=== PATIENT | female | born 1990 | race Caucasian/White ===

== ENCOUNTER 2018-07-08 21:07 | Inpatient (IN) | payer BC ==
[2018-07-09] MEDS ORDERED: Lidocaine 1% (PF) 30 ML VIAL SC PRN (00:13)
[2018-07-09] MEDS ORDERED: Ondansetron PF 4 MG/2 ML Vial IVP PRN ×2 (00:13→19:52)
[2018-07-09] MEDS ORDERED: NS / Oxytocin 40 units/1000ml 1,000 ML IV PRN (00:13)
[2018-07-09] MEDS ORDERED: HYDROcodone/Acetaminophen 5/325 mg Tablet PO PRN ×2 (00:13)
[2018-07-09] MEDS ORDERED: Lactated Ringer's 1,000 ML IV PRN (00:13)
[2018-07-09] MEDS ORDERED: Ibuprofen 800 MG TAB PO PRN (00:13)
[2018-07-09] MEDS ORDERED: Promethazine HCl 25 MG/ML VIAL IM PRN ×2 (00:13→19:52)
[2018-07-09] MEDS ORDERED: Misoprostol 200 MCG TAB PR PRN (00:13)
[2018-07-09 00:24] VITALS: BMI 22.8
[2018-07-09 01:04] LABS: Hemoglobin 11.5 g/dL (12.0-16.0); Mean Corpuscular Volume 97.3 fL (78.0-98.0); Mean Platelet Volume 7.9 fL (7.4-10.4); Platelet Count 234 thou/uL (130-400); RBC Distribution Width 11.1 % (11.5-14.5); Red Blood Cell (RBC) Count 3.38 mill/uL (4.20-5.40); White Blood Cell (WBC) Count 11.9 thou/uL (4.8-10.8)
[2018-07-09 01:41] LABS: HBSAg Index 0.31 S/CO (0-0.99); Hep B Surf Ag Non-Reactive S/CO (NonReactive)
[2018-07-09 05:59] LABS: Syphilis Antibody Nonreactive (Nonreactive); Syphilis Antibody Index 0.02 S/CO (<1.00 Non-Reactive)
[2018-07-09] MEDS ORDERED: Bupivacaine 0.25% HCL 30 ML VIAL ONE (11:11)
--- NOTE | 2018-07-09 12:23 | PDOC.LDHP ---
Labor and Delivery H&P Chief complaint: contractions HPI: Patient started jhon at 0200 on 07/08/18. They were every three minutes. She Report good movement, and Denies LOF and VB. Current gestational age (weeks): 40 Dating criteria: last menstrual period Grav: 1 Para: 0 Current complications: none Abnormal US findings: No Past Medical History: Hx of pyelonephritis. Current medications: pre-fredrick vitamins Previous surgical history: appendectomy, none (arthroscopic knee surgery) Allergies/Adverse Reactions: Allergies Allergy/AdvReac Type Severity Reaction Status Date / Time No Known Allergies Allergy Verified 07/08/18 22:09 Social history: none - Physical Exam Vital signs reviewed and normal: yes General: breathing through contractions Heart: RRR Lungs: nonlabored breathing Abdomen: gravid Extremeties: no edema FHT: category 1 - Vaginal Exam cm dilated: 4 Effacement: 100% Station: -1 - OB Labs Blood type: A RH: positive Antibody Screen: negative HIV: negative RPR: negative HEPSAg: negative 1 hour GCT: negative GBS: negative Urine drug screen: negative Rubella: immune - Assessment L&D Assessment: term patient in labor admit to L&D. low intervention protocol
[2018-07-09] MEDS: Dextrose 5%-Lactated Ringers 1,000 ML IV SCH ×3 (14:00→20:50)
[2018-07-09] MEDS ORDERED: NS w/ Oxytocin 10 units 500 ML IV SCH (16:15)
--- NOTE | 2018-07-09 18:10 | PDOC.LDPN ---
Labor & Delivery Progress Note - Subjective Subjective: painful contractions - Objective Vital signs reviewed and normal: yes General: breathing through contractions Dilation: 4 Effacement: 100% Station: -1 FHT: category 1 AROM: clear fluid Plan: continue plan of care
[2018-07-09] MEDS ORDERED: Fentanyl 4 mcg/Bup 0.1% Cadd 100 ML ONE (19:02)
[2018-07-09] MEDS ORDERED: diphenhydrAMINE 50 MG/ML VIAL IVP PRN (19:52)
[2018-07-09] MEDS ORDERED: Naloxone HCl 0.4 mg/ml Vial IVP PRN ×2 (19:52)
[2018-07-09] MEDS ORDERED: Eucerin (Mineral Oil/Petrolatum,White) 30 gm Jar TOP PRN (19:52)
[2018-07-09] MEDS ORDERED: Lactated Ringer's 500 ML IV PRN (19:52)
[2018-07-09] MEDS ORDERED: ePHEDrine/0.9% NaCl/PF SYRINGE 50 mg/10 ml SLOW IVP PRN (19:52)
[2018-07-09] MEDS ORDERED: Acetaminophen 325 MG TAB PO PRN (19:52)
[2018-07-09] MEDS ORDERED: Communication Order-Pharmacy FS SCH (20:00)
[2018-07-09] MEDS ORDERED: Fentanyl 4 mcg/Bupivacaine 0.1% Cassette 100 ML EPIDURAL SCH (20:00)
[2018-07-09] MEDS ORDERED: Terbutaline Sulfate 1 MG/ML VIAL ONE (21:51)
--- NOTE | 2018-07-10 03:30 | PDOC.OPDEL ---
OB Operative/Delivery Note Delivery Dr/Surgeon: Bon Pike Assist: Malini Pre-Delivery Diagnosis: active labor Procedure/Post Delivery Dx: spontaneous vaginal delivery Weeks gestation: 40 Anesthesia: epidural - Findings A Sex: male Weight: 7 lb 9 oz - 1 min: 8 - 5 min: 9 - Additional Findings/Plan Placenta delivered: spontaneous Repaired Obstetrical Laceration: none Estimated blood loss: 450mL Compilations/Other Findings: Late decelerations with pushing efforts. Dr. Nayak at bedside to assist with expediting delivery. Post delivery plan: routine recovery
[2018-07-10] MEDS ORDERED: NS / Oxytocin 40 units/1000ml 1,000 ML IV SCH (05:43)
[2018-07-10] MEDS ORDERED: Bisacodyl 10 MG SUPP PR PRN (05:43)
[2018-07-10] MEDS ORDERED: Lanolin Ointment 7 GM TUBE TOP PRN (05:43)
[2018-07-10] MEDS ORDERED: Benzocaine/Menthol 20-0.5% 60 ML CAN TOP PRN (05:43)
[2018-07-10] MEDS ORDERED: HYDROcodone/Acetaminophen 5/325 mg Tablet PO PRN ×2 (05:43)
[2018-07-10] MEDS ORDERED: Misoprostol 200 MCG TAB VAG PRN (05:43)
[2018-07-10] MEDS ORDERED: Milk Of Magnesia 30 ML UDCUP PO PRN (05:43)
[2018-07-10] MEDS ORDERED: Adacel (T-DAP) 0.5 ML SYRINGE IM ONE (05:43)
[2018-07-10] MEDS: Ibuprofen 800 MG TAB PO SCH ×3 (07:57→21:46)
[2018-07-10] MEDS: Docusate Calcium (SURFAK) 240 MG CAP PO SCH ×2 (08:59→21:46)
[2018-07-10] MEDS: Ferrous Sulfate 325 MG TAB PO SCH ×2 (10:04→18:12)
[2018-07-11 05:33] LABS: Hemoglobin 8.9 g/dL (12.0-16.0); Mean Corpuscular HGB CONC 33.3 g/dL (32.0-36.0); Mean Corpuscular Hemoglobin 33.2 pg (27.0-31.0); Mean Corpuscular Volume 99.7 fL (78.0-98.0); Mean Platelet Volume 7.3 fL (7.4-10.4); Platelet Count 191 thou/uL (130-400); RBC Distribution Width 11.2 % (11.5-14.5); Red Blood Cell (RBC) Count 2.68 mill/uL (4.20-5.40); White Blood Cell (WBC) Count 13.2 thou/uL (4.8-10.8)
[2018-07-11] MEDS: Ibuprofen 800 MG TAB PO SCH ×3 (06:22→22:02)
[2018-07-11] MEDS: Docusate Calcium (SURFAK) 240 MG CAP PO SCH ×2 (09:28→22:02)
[2018-07-11] MEDS: Ferrous Sulfate 325 MG TAB PO SCH ×2 (09:28→17:22)
[2018-07-11] MEDS ORDERED: Acetaminophen 325 MG TAB PO PRN (19:00)
[2018-07-12] MEDS: Ibuprofen 800 MG TAB PO SCH (06:22)
[2018-07-12 07:58] VITALS: TEMP 98.1
[2018-07-12] MEDS: Ferrous Sulfate 325 MG TAB PO SCH (08:32)
[2018-07-12] MEDS: Docusate Calcium (SURFAK) 240 MG CAP PO SCH (08:46)
[2018-07-12 09:06] VITALS: BP 122/78
== END 2018-07-12 12:25 | disposition home or self-care (01) | DRG 807 ==
LOC: L&D/OP 21:07 → L&D-LIB 07-09 00:37 → 3SW 07-10 05:54
PROVIDERS: ADMIT Obstetrics & Gynecology; ATTEND Obstetrics & Gynecology
PROC: 10E0XZZ Delivery of Products of Conception, External Approach (ICD-10-PCS; principal; 2018-07-11)
DX: O48.0 Post-term pregnancy (principal); Z37.0 Single live birth; Z3A.40 40 weeks gestation of pregnancy; Z90.49 Acquired absence of other specified parts of digestive tract
CPT/HCPCS: 36415; 51702; 85027; 86780; 86850; 86900; 86901; 87340; 99285; J2001; J3105; S0020

== ENCOUNTER 2018-07-12 18:35 | Inpatient (IN) | payer BC ==
[2018-07-12] MEDS ORDERED: Promethazine HCl 25 MG/ML VIAL IM PRN (19:01)
[2018-07-12] MEDS ORDERED: Ondansetron PF 4 MG/2 ML Vial IVP PRN (19:01)
[2018-07-12] MEDS ORDERED: Calcium Gluc 4.6 MEQ/10 ML (100 MG/ML) SLOW IVP PRN (19:01)
[2018-07-12] MEDS ORDERED: Magnesium Sulfate 20 gm/500 ml 20 GM/500 ML BAG ONE (19:08)
[2018-07-12] MEDS ORDERED: Labetalol HCl 100 MG/20 ML VIAL SLOW IVP PRN (19:08)
[2018-07-12] MEDS: Lactated Ringer's 1,000 ML IV SCH (19:09)
[2018-07-12] MEDS ORDERED: Magnesium Sulfate 20 GM/WATER 500 ML BAG IVPB SCH (19:15)
[2018-07-12 19:55] VITALS: BMI 21.0
[2018-07-12 20:15] LABS: Bilirubin Negative (Negative); Blood, Urine Negative (Negative); Clarity CLEAR (Clear); Glucose, Urine (Dipstick) Negative (Negative); Leukocyte Negative (Negative); Nitrite Negative (Negative); Protein, Urine (Dipstick) Negative (Neg-Trace); Urobilinogen 0.2 mg/dL (0.2-1.0); pH, Urine 7.5 (5.0-9.0)
[2018-07-12 20:16] LABS: Bacteria/HPF None Seen HPF (None Seen); Hyaline Casts/LPF 0-3 HYALINE CAST LPF (0-3 Hyaline); RBC/HPF None Seen HPF (0-3); Squamous Epithelial None Seen HPF (0-3); WBC/HPF None Seen HPF (0-3)
[2018-07-12 20:28] LABS: ALT (SGPT) 18 U/L (8-55); AST (SGOT) 24 U/L (5-34); Albumin 3.1 g/dL (3.5-5.0); Alkaline Phosphatase 199 U/L (40-150); Anion Gap 11 mmol/L (10-20); BUN (Urea Nitrogen) 11 mg/dL (7.0-18.7); Bilirubin, Total 0.2 mg/dL (0.2-1.2); Calc. Creatinine Clearance 96 mL/min (70-130); Calcium 8.3 mg/dL (7.8-10.44); Carbon Dioxide 24 mmol/L (22-29); Chloride 109 mmol/L (98-107); Estimated GFR-MDRD Greater than 90; Globulin 2.1 g/dL (2.4-3.5); Glucose 89 mg/dL (70-105); Potassium 4.4 mmol/L (3.5-5.1); Protein, Total 5.2 g/dL (6.0-8.3); Sodium 140 mmol/L (136-145)
--- NOTE | 2018-07-12 21:15 | HP ---
TIME OF SERVICE: 2030 hours. REASON FOR ADMISSION: Severe pre-eclampsia 3 days . HISTORY OF PRESENT ILLNESS: Ms. Casas had a spontaneous vaginal delivery 3 days ago by Malissa Pike. She had unremarkable post delivery course. She was noted to have one elevated blood pressure to 140s to 150s systolic prior to discharge today, but without symptoms. After going home, the patient noted that she had a worsening headache and blood pressures at home were 170s to 180s. She re-presents for symptomatology. 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 PAST MEDICAL HISTORY: Significant for history of pyelonephritis. PAST SURGICAL HISTORY: Appendectomy and arthroscopic knee surgery. ALLERGIES: NONE. MEDICATIONS: vitamins. SOCIAL HISTORY: Denies tobacco, alcohol, or drug abuse. The patient and her town. PHYSICAL EXAMINATION: GENERAL: White female, in no acute distress. VITAL SIGNS: Temperature 98.5, respirations 18, pulse 92, blood pressure upon presentation was 178/100. HEENT: Within normal limits. No scotoma noted. HEART: Regular rate and rhythm. LUNGS: Clear to auscultation bilaterally. ABDOMEN: Soft, nontender. PELVIC: Deferred. EXTREMITIES: No clubbing, cyanosis, or edema. DTRs 1 to 2+. LABORATORY DATA: Laboratory evaluations pending. IMPRESSION: Severe pre-eclampsia 3 days . PLAN: Admission to Labor and Delivery. Laboratory evaluation, magnesium sulfate 4 g bolus then 2 g/hour IV, labetalol 20 to 40 mg IV q.10 to 20 minutes as needed for control of systolic blood pressure 170 or less. Job ID: [id number]
[2018-07-12] MEDS: Acetaminophen 325 MG TAB PO PRN (21:34)
[2018-07-12] MEDS: Ibuprofen 600 MG TAB PO PRN (22:22)
[2018-07-13] MEDS: Magnesium Sulfate 20 gm/500 ml 20 GM/500 ML BAG IVPB SCH ×2 (03:37→13:41)
--- NOTE | 2018-07-13 07:11 | PRG ---
DATE OF SERVICE: 07/13/2018 TIME OF SERVICE: 0645 hours. SUBJECTIVE: Ms. Casas is resting comfortably. She denies headache or blurred vision at this time. Blood pressures have been somewhat labile overnight with systolics ranging from 120s to 150s and diastolics from 80s to 90s. PHYSICAL EXAMINATION: VITAL SIGNS: Temperature 98.7, respirations 18, pulse 85, blood pressure 132/92. HEENT: Within normal limits. LUNGS: Clear to auscultation bilaterally. HEART: Regular rate and rhythm. ABDOMEN: Soft, nontender. No rebound or guarding. EXTREMITIES: Without clubbing, cyanosis, or edema. 1+ DTRs. LABORATORY DATA: Urine output has been greater than 100 mL/hour. Comp met panel and urinalysis were within normal limits. Initial labs did not run CBC. IMPRESSION: preeclampsia with severe range blood pressures upon presentation, now resolving on IV magnesium sulfate at 2 g/hour. PLAN: 1. Continue magnesium sulfate. Repeat labs. Check CBC. 2. Plan on discontinuing magnesium sulfate at 24 hours and reevaluation. The patient's care will be taken over by Dr. Nayak at 0800 hours. Job ID: [id number]
[2018-07-13] MEDS: Lactated Ringer's 1,000 ML IV SCH ×2 (07:25→17:58)
[2018-07-13 13:28] LABS: #Eosinphils 0.3 thou/uL (0.0-0.7); #Lymphocytes 1.5 thou/uL (1.20-3.40); #Monocytes 0.4 thou/uL (0.11-0.59); #Neutrophils 6.1 thou/uL (1.40-6.50); %Basophils 0.6 % (0.0-1.0); %Eosinophils 3.1 % (0.0-10.0); %Lymphocytes 18.2 % (21.0-51.0); %Monocytes 4.9 % (0.0-10.0); %Neutrophils 73.3 % (42.0-75.0); Hemoglobin 10.7 g/dL (12.0-16.0); Mean Corpuscular HGB CONC 34.6 g/dL (32.0-36.0); Mean Corpuscular Volume 98.3 fL (78.0-98.0); Mean Platelet Volume 6.5 fL (7.4-10.4); Platelet Count 302 thou/uL (130-400); RBC Distribution Width 11.3 % (11.5-14.5); Red Blood Cell (RBC) Count 3.15 mill/uL (4.20-5.40); White Blood Cell (WBC) Count 8.3 thou/uL (4.8-10.8)
[2018-07-13 13:54] LABS: AST (SGOT) 24 U/L (5-34); Anion Gap 10 mmol/L (10-20); BUN (Urea Nitrogen) 6 mg/dL (7.0-18.7); Calc. Creatinine Clearance 103 mL/min (70-130); Calcium 6.7 mg/dL (7.8-10.44); Carbon Dioxide 26 mmol/L (22-29); Chloride 104 mmol/L (98-107); Estimated GFR-MDRD Greater than 90; Glucose 105 mg/dL (70-105); Sodium 136 mmol/L (136-145)
[2018-07-13] MEDS: Ibuprofen 600 MG TAB PO PRN (13:59)
[2018-07-13] MEDS: Acetaminophen 325 MG TAB PO PRN (17:38)
[2018-07-14] MEDS ORDERED: Milk Of Magnesia 30 ML UDCUP PO PRN (02:53)
[2018-07-14] MEDS ORDERED: Lanolin Ointment 7 GM TUBE TOP PRN (02:53)
[2018-07-14] MEDS ORDERED: Acetaminophen/Codeine 30-300mg Tablet PO PRN ×2 (02:53)
[2018-07-14] MEDS ORDERED: Zolpidem Tartrate 5 MG TAB PO PRN (02:53)
[2018-07-14] MEDS ORDERED: Bisacodyl 10 MG SUPP PR PRN (02:53)
[2018-07-14] MEDS: Ibuprofen 800 MG TAB PO SCH ×3 (06:15→23:52)
--- NOTE | 2018-07-14 08:02 | PRG ---
DATE OF SERVICE: 07/14/2018 PRIMARY OB: Ms. Malissa Pike. SUBJECTIVE: The patient is a 27-year-old female, now day 4, hospital day 2, readmitted for preeclampsia. She is status post magnesium, which came off last night around 7 o'clock. The patient reports this morning that she is feeling much better. Denies headache, rested well overnight and denies any blurry vision. Blood pressures over the course of her stay apart from a few severe range pressures at time of admission have all been primarily within normal limits. She has had a couple of mild range pressures with her most recent blood pressure being 151/81, heart rate of 70, respiratory rate of 16, and temperature 98.1. OBJECTIVE: GENERAL: She appears to be in no acute distress. She is alert, oriented, cooperative, and pleasant to interact with. HEAD: Normocephalic, atraumatic. ABDOMEN: Soft. LABORATORY DATA: At the time of admission shows a white count of 8.3, hemoglobin of 10.7, hematocrit 30.9, and platelets of 302,000. Sodium 136, potassium 4, BUN of 6, creatinine is 0.67. AST of 24. Urine was negative for protein. ASSESSMENT AND PLAN: The patient is a 27-year-old female, who readmitted for severe gestational hypertension and preeclampsia without proteinuria, status post magnesium for seizure prophylaxis. Her blood pressures since shortly after admission remains normal to mild range. She has been off magnesium now for over the last 12 hours and we will continue to watch her through the day today for blood pressure monitoring. Should she experience severe range pressures, I will consider instituting an oral antihypertensive medication. Dr. Culver, who is the oncoming OB hospitalist would make these further decisions. Job ID: [id number]
[2018-07-14] MEDS ORDERED: Adacel (T-DAP) 0.5 ML SYRINGE IM ONE (09:00)
--- NOTE | 2018-07-14 09:39 | PDOC.EVN ---
Event Note - Event Note Event Note: L&D 5 Med Initiation Time: 929 Patient seen at bedside. Notified that BP was 165/85 at 0900, retake 20 min later was 158/89 BP now: 163/93 No sxs I have reviewed with them PP PIH. Reviewed May 2018 Marcin. As BPs still 160s with 180s at home, I have recommended with start Procardia 30mg XL...start this am. Rec at least 24 hours of obs after med initiation or longer if wqe need to continue med adjustment. No peripheral edema noted
[2018-07-14] MEDS: Ferrous Sulfate 325 MG TAB PO SCH ×2 (10:38→20:04)
[2018-07-14] MEDS: Prenatal Vitamin 1 TAB PO SCH (10:38)
[2018-07-14] MEDS: Docusate Calcium (SURFAK) 240 MG CAP PO SCH ×2 (10:38→22:00)
--- NOTE | 2018-07-14 20:17 | PDOC.EVN ---
Event Note - Event Note Event Note: @ 2020: BPs reviewed... BP was 161/94 at 1858 other BPs variable from 130s to 150s systolic. I will transfer to floor and give 60mg procardia XL in AM
[2018-07-14] MEDS: Lactated Ringer's 1,000 ML IV SCH (23:55)
--- NOTE | 2018-07-15 01:18 | PDOC.EVN ---
Event Note - Event Note Event Note: Just called that BP was 166/99...patient resting and sleeping. I have ordered 10mg po nifedipine stat now.Serial BPs after. Recheck CBC, CMP now
[2018-07-15] MEDS ORDERED: NIFEdipine 10 MG CAP PO SCH (01:30)
[2018-07-15 02:06] LABS: Mean Corpuscular HGB CONC 34.3 g/dL (32.0-36.0); Mean Corpuscular Hemoglobin 34.1 pg (27.0-31.0); Mean Corpuscular Volume 99.6 fL (78.0-98.0); Mean Platelet Volume 6.1 fL (7.4-10.4); Platelet Count 317 thou/uL (130-400); RBC Distribution Width 11.5 % (11.5-14.5); Red Blood Cell (RBC) Count 3.21 mill/uL (4.20-5.40); White Blood Cell (WBC) Count 9.6 thou/uL (4.8-10.8)
[2018-07-15 02:27] LABS: ALT (SGPT) 30 U/L (8-55); AST (SGOT) 29 U/L (5-34); Albumin 3.2 g/dL (3.5-5.0); Alkaline Phosphatase 176 U/L (40-150); Anion Gap 11 mmol/L (10-20); BUN (Urea Nitrogen) 15 mg/dL (7.0-18.7); Bilirubin, Total 0.3 mg/dL (0.2-1.2); Calc. Creatinine Clearance 105 mL/min (70-130); Calcium 8.6 mg/dL (7.8-10.44); Carbon Dioxide 22 mmol/L (22-29); Chloride 110 mmol/L (98-107); Estimated GFR-MDRD Greater than 90; Globulin 2.8 g/dL (2.4-3.5); Glucose 86 mg/dL (70-105); Potassium 4.6 mmol/L (3.5-5.1); Sodium 138 mmol/L (136-145)
[2018-07-15] MEDS: Ibuprofen 800 MG TAB PO SCH ×3 (04:49→21:07)
--- NOTE | 2018-07-15 05:54 | PDOC.PP ---
Post Progress Note Post Day #: 3, HD3 Subjective: no SXs of CORDON or RUQ pain or visual changes PO intake tolerated: yes Flatus: yes Ambulation: yes Vital Signs (12 hours) Temp Pulse Resp BP BP 07/15/18 04:53 98.0 F 71 16 137/85 07/15/18 02:40 69 118/73 07/15/18 02:20 85 109/68 07/15/18 02:00 123 H 114/74 07/15/18 01:15 98.6 F 60 16 166/99 H 07/14/18 22:10 98.8 F 62 16 159/80 H Weight Weight 115 lb - Physical Examination General: NAD Cardiovascular: no m/r/g Respiratory: clear to auscultation bilaterally Abdominal: + bowel sounds, no distention, appropriately TTP Extremities: negative homans (B) Neurological: no gross focal deficits Psychiatric: A&Ox3, normal affect Result Diagrams: 07/15/18 01:55 07/15/18 01:55 Additional Labs: TSH normal (1) hypertension Code(s): O16.5 - UNSPECIFIED MATERNAL HYPERTENSION, COMP THE PUERPERIUM Status : Acute - Assessment/Plan PLAN: BPs are better after the 10mg procardia earlier this AM. At 0900, we will give her Procardia 60mg XL and follow. Labs do not show evidence of HELLP or thyroid issue. Follow BPs today
[2018-07-15] MEDS: Ferrous Sulfate 325 MG TAB PO SCH ×2 (07:42→14:22)
[2018-07-15] MEDS ORDERED: NIFEdipine XL 30 MG TAB PO SCH ×3 (09:00→21:00)
[2018-07-15] MEDS: Prenatal Vitamin 1 TAB PO SCH (09:10)
[2018-07-15] MEDS: NIFEdipine XL 60 MG TAB PO SCH (09:11)
[2018-07-15] MEDS: Docusate Calcium (SURFAK) 240 MG CAP PO SCH ×2 (09:11→21:07)
--- NOTE | 2018-07-15 19:37 | PDOC.EVN ---
Event Note - Event Note Event Note: Reviewed blood pressures this evening to assess for possible discharge. Pt has three systolic blood pressures in the severe range. 160,161,173 systolicl. Pt reports vision blurring and hearing changes with these spikes. Currently on procardia xl 60 qday (increased from 30mg this morning). We will start pt on 30mg procardia xl qpm and continue procardia xl 60 qday and continue to observe.
[2018-07-16] MEDS: Ibuprofen 800 MG TAB PO SCH (05:07)
--- NOTE | 2018-07-16 07:40 | PRG ---
DATE OF SERVICE: 07/16/2018 PRIMARY GROUND HAND: Malissa Pike CNM. SUBJECTIVE: The patient is hospital day 4 for readmission for preeclampsia. She is status post magnesium and has required antihypertensive medications. The patient had a medication change yesterday morning of two Procardia XL 60 mg daily. She had several clusters spikes into the severe range around 4 p.m. yesterday afternoon. With discussion of the family and the patient, decision was made to add 30 mg of Procardia in the evenings. Overnight, the patient has a normal to mild range blood pressures. The patient denies headache, vision changes, or hearing changes. OBJECTIVE: VITAL SIGNS: Currently, blood pressure is 121/78, temperature is 78.8, pulse is 70, respiratory rate of 20. Blood pressures last night were primarily in the mild range in the 140s. GENERAL: She appears to be in no acute distress. She is alert, oriented, cooperative, and pleasant to interact with. ASSESSMENT AND PLAN: The patient is hospital day 4, status post magnesium for preeclampsia. Medication was changed again last night to 60 mg of Procardia XL daily and 30 mg of Procardia XL q.p.m. The patient's last severe range blood pressures were yesterday around 4 p.m. Plans at this point are to continue to watch blood pressures this morning and into the lunch hour and reassess with possibility of discharge home early this afternoon. Job ID: [id number]
[2018-07-16] MEDS: NIFEdipine XL 60 MG TAB PO SCH (08:39)
[2018-07-16] MEDS: Prenatal Vitamin 1 TAB PO SCH (08:39)
[2018-07-16] MEDS: Docusate Calcium (SURFAK) 240 MG CAP PO SCH (08:39)
[2018-07-16] MEDS: Ferrous Sulfate 325 MG TAB PO SCH (08:41)
[2018-07-16 11:24] VITALS: BP 135/87; TEMP 98.5
--- NOTE | 2018-07-16 12:08 | PDOC.EVN ---
Event Note - Event Note Event Note: OBGYN DISCHARGE HOME ADMIT: 07/12/18 DISCHARGE: 07/16/18 DX: Hypertension (preeclampsia) COURSE and Summary: This patient was readmitted after . She was admitted for de nash hypertension . Admission PIH lab assessment was normal and see was without persistent SXS. She was placed on MagSulfate and initiallly did not require medication for BP. I began her on procardia shortly after her admit for persistent BPs in the 160s systolic. Her regimine was Procardia 30mg XL in the am...then finally adjusted to 60mg procardia XL in the AM and 30mg XL in the evening. Patient requested discharge home on my call day, July 16, as her BPs were much better. I had previously rechecked her labs and they remained without evidence of HELLP , and her TSH was normal. Discrge med will be as stated with BP check in 72 hours (Thursday) with Malissa Pike.
== END 2018-07-16 12:58 | disposition home or self-care (01) | DRG 776 ==
LOC: L&D/OP 18:35 → L&D 20:20 → 3SW 07-14 22:12
PROVIDERS: ADMIT Obstetrics & Gynecology; ATTEND Obstetrics & Gynecology
DX: O14.15 Severe pre-eclampsia, complicating the puerperium (principal); O16.5 Unspecified maternal hypertension, complicating the puerperium
CPT/HCPCS: 36415; 51702; 80048; 80053; 81001; 84443; 84450; 85025; 85027; 99285; J2550; J3475

== ENCOUNTER 2025-04-28 08:20 | Outpatient (CLI) | payer BC | END 2025-04-28 08:21 | disposition home or self-care (01) | LOC: BICMRI 08:20 → MERGE 08:20 → BICMRI 08:21 | PROVIDERS: ATTEND Family Medicine Sports Medicine | DX: M54.6 Pain in thoracic spine (principal); M54.41 Lumbago with sciatica, right side; M50.223 Other cervical disc displacement at C6-C7 level | CPT/HCPCS: 72141; 72146; 72148 ==